=== PATIENT | male | born 1975 | race African-American/Black ===

== ENCOUNTER 2017-07-16 18:15 | Emergency (ER) | payer OTHER ==
[2017-07-16 18:26] VITALS: RESP 18
--- NOTE | 2017-07-16 20:01 | CT ---
EXAMINATION TYPE: CT mastoid wo con DATE OF EXAM: 07/16/2017 COMPARISON: NONE HISTORY: Left ear ache CT DLP: 150 mGycm. Automated Exposure Control for Dose Reduction was Utilized. TECHNIQUE: CT scan to the mastoid air cells performed at 1 mm thick sections. Reconstructed images in the coronal plane are reviewed.. FINDINGS: Mastoid air cells are clear. No septal destruction are fluid-filled mastoid air cells are e vident. Note is made a retention cyst within the sphenoid sinus. Mild mucosal thickening is within the left m axillary sinus. Remaining paranasal sinuses within the [id number] are clear. The adenoid is slightly prominent. Osseous structures visualized otherwise are unremarkable. Portion of the brain is visualized within the [id number] is unremarkable. IMPRESSION: 1. Normal mastoids. 2. Sphenoid sinus mucosal retention cyst. 3. Mild mucosal thickening left maxillary sinus.
[2017-07-16] MEDS ORDERED: OFLOXACIN 0.3% OPHTH DROPS 5 ML BOTTLE LEFT EAR STA (20:19)
[2017-07-16 20:44] VITALS: BP 134/78; PULSE 91; TEMP 97.6
[2017-07-16] MEDS ORDERED: Acetaminophen-Codeine 300-30mg TAB PO STA (20:44)
--- NOTE | 2017-07-16 21:07 | ED ---
General Adult HPI - General Chief complaint: ENT Stated complaint: lt ear pain Time Seen by Provider: 07/16/17 18:40 Source: patient, RN notes reviewed Mode of arrival: ambulatory Limitations: no limitations - History of Present Illness Initial comments: 41-year-old male presents to the emergency department for a chief complaint of left ear pain. Patient states that his been ongoing for about a week. Patient states his left ear appears closed. Patient denies pain in the neck or face. Patient denies pain behind the ear. Patient denies any history of diabetes. Patient denies any fevers. Patient denies swimming in any lakes or ponds. Patient states he does take showers. Patient denies any decreased hearing. Patient denies any other complaints at this time such as shortness of breath, chest pain, abdominal pain, nausea or vomiting. - Related Data Previous Rx's Medication Instructions Recorded Amoxicillin/Potassium Clav 1 tab PO Q12HR #20 tab 07/16/17 [Augmentin 875-125 Tablet] Ibuprofen [Motrin] 600 mg PO Q8HR PRN #20 tab 07/16/17 Ofloxacin 0.3% Otic Soln [Floxin 10 drops LEFT EAR BID 10 Days ml 07/16/17 0.3% Otic Soln] Allergies Allergy/AdvReac Type Severity Reaction Status Date / Time No Known Allergies Allergy Verified 07/16/17 18:26 Review of Systems ROS Statement: Those systems with pertinent positive or pertinent negative responses have been documented in the HPI. ROS Other: All systems not noted in ROS Statement are negative. Past Medical History Past Medical History: Hypertension History of Any Multi-Drug Resistant Organisms: None Reported Past Surgical History: No Surgical Hx Reported Past Psychological History: No Psychological Hx Reported Smoking Status: Current every day smoker Past Alcohol Use History: Occasional Past Drug Use History: Marijuana General Exam Limitations: no limitations Eye exam: Present: normal appearance, PERRL, EOMI. Absent: scleral icterus, conjunctival injection, periorbital swelling ENT exam: Present: normal exam, normal oropharynx. Absent: TM's normal bilaterally (Right TM appears within normal limits. Left tympanic membrane cannot be visualized due to swelling in the external ear canal.), normal external ear exam (Left external ear canal is swollen and edematous. It is not patent. Patient has pain when tragus is palpated. Patient denies pain when pinna is palpated. Patient denies pain in the mastoid process but states she has some mild pain under his ear. Patient denies pain in the front of his ear.) Neck exam: Present: normal inspection, full ROM. Absent: tenderness, meningismus, lymphadenopathy Respiratory exam: Present: normal lung sounds bilaterally. Absent: respiratory distress, wheezes, rales, rhonchi, stridor Cardiovascular Exam: Present: regular rate, normal rhythm, normal heart sounds. Absent: systolic murmur, diastolic murmur, rubs, gallop, clicks Course Vital Signs 07/16/17 07/16/17 18:23 20:43 Temperature 98.9 F 97.6 F Pulse Rate 111 H 91 Respiratory 18 18 Rate Blood Pressure 144/89 134/78 O2 Sat by Pulse 100 100 Oximetry Medical Decision Making - Medical Decision Making 41-year-old male presents with left ear pain. Patient states his left ear appears closed. On exam tympanic membrane cannot be visualized and external ear canal is not patent. Patient denies any fevers. Vitals are within normal limits: Temperature 98.9, pulse 111, respirations 18, blood pressure 144/89, pulse ox 100. Patient is afebrile. Patient states he has pain to palpation of the tragus and inferior to the ear. CT findings show that mastoid air cells are clear. No septal distraction or fluid-filled mastoid air cells are evident. A wick was placed in patient's left ear and 10 drops of ofloxacin was instilled. Patient was given a prescription for ofloxacin. He was also given a prescription of Augmentin since the tympanic membrane cannot be visualized. He is to follow up with primary care in 1-2 days. He is to return to the emergency department if symptoms worsen or he develops fevers. Disposition Clinical Impression: Otitis externa Disposition: HOME SELF-CARE Condition: Good Instructions: Otitis Externa (ED) Additional Instructions: Please follow up with primary care provider in one to 2 days. You may have the wick come out when the ear canal opens enough. Continue to apply antibiotic drops as directed. Take Augmentin as directed. Take ibuprofen as directed for pain relief. Return to the emergency department if you develop fevers or symptoms worsen. Prescriptions: Amoxicillin/Potassium Clav [Augmentin 875-125 Tablet] 1 tab PO Q12HR #20 tab Ibuprofen [Motrin] 600 mg PO Q8HR PRN #20 tab PRN Reason: Pain Ofloxacin 0.3% Otic Soln [Floxin 0.3% Otic Soln] 10 drops LEFT EAR BID 10 Days ml Referrals: Amelia Alicia MD [Primary Care Provider] - 1-2 days Time of Disposition: 21:06
== END 2017-07-16 21:17 | disposition home or self-care (01) ==
LOC: EC 18:15
DX: H60.92 Unspecified otitis externa, left ear (principal); F17.200 Nicotine dependence, unspecified, uncomplicated
CPT/HCPCS: 70486; 99283

== ENCOUNTER 2017-08-18 22:29 | Emergency (ER) | payer OTHER ==
[2017-08-18 22:35] VITALS: BP 152/93; PULSE 102; RESP 18; TEMP 99.1
--- NOTE | 2017-08-18 23:03 | ED ---
General Adult HPI - General Chief complaint: Extremity Injury, Upper Stated complaint: Arm injury Time Seen by Provider: 08/18/17 23:00 Source: patient Mode of arrival: ambulatory Limitations: no limitations - History of Present Illness Initial comments: Diego Martin is a 41-year-old male who presents ot the ED today for evaluation of right shoulder pain. Patient states that he was in a chi to get to his car, he put on his boots but he did not tie them. He states that while walking he tripped over his untied shoelaces and fell forward. He attempted to catch himself on the car door. He reports that he hyperextended his right shoulder and it made a popping noise. He states that immediately afterwards he felt as though he couldn't move his shoulder. He then asked his significant other to drive him to the hospital for evaluation because he thought his shoulder was dislocated. En route to the hospital he states that he was able to move his shoulder and that it made for popping noises. He states that then felt like it was in place but it is still very sore. Patient denies any numbness or tingling in extremity. He reports full range of motion now but does state it is mildly sore especially with abduction patient denies any other injuries. He denies striking his head or loss of consciousness. He was able to get himself up off the ground and has been ambulatory since that time. - Related Data Home Medications Medication Instructions Recorded Confirmed amLODIPine [Norvasc] 5 mg PO DAILY 08/18/17 08/18/17 Allergies Allergy/AdvReac Type Severity Reaction Status Date / Time No Known Allergies Allergy Verified 08/18/17 22:41 Review of Systems ROS Statement: Those systems with pertinent positive or pertinent negative responses have been documented in the HPI. ROS Other: All systems not noted in ROS Statement are negative. Past Medical History Past Medical History: Hypertension History of Any Multi-Drug Resistant Organisms: None Reported Past Surgical History: No Surgical Hx Reported Past Psychological History: No Psychological Hx Reported Smoking Status: Current every day smoker Past Alcohol Use History: Occasional Past Drug Use History: Marijuana General Exam Limitations: no limitations General appearance: alert, in no apparent distress Head exam: Present: atraumatic, normocephalic Eye exam: Present: normal appearance, PERRL ENT exam: Present: normal oropharynx Neck exam: Present: full ROM Respiratory exam: Absent: respiratory distress Cardiovascular Exam: Present: regular rate GI/Abdominal exam: Present: soft. Absent: distended Rectal exam: Present: deferred Extremities exam: Present: normal inspection, tenderness, normal capillary refill. Absent: pedal edema, joint swelling Right General: Absent: laceration, abrasion Shoulder Exam: Present: tenderness, tenderness over AC joint. Absent: swelling , abrasion, laceration, ecchymosis, deformity, crepitus, dislocation, erythema Elbow exam: Present: full ROM Forearm Wrist exam: Present: full ROM. Absent: tenderness, swelling Hand Wrist exam: Present: full ROM. Absent: tenderness, swelling Neuro motor exam: Present: wrist extension intact, thumb opposition intact, thumb IP flexion intact, thumb adduction intact, fingers 2-5 abduction intact Neurosensory exam: Present: 2-point discrimination Vascular: Present: normal capillary refill. Absent: vascular compromise, Pallo , pulse deficit radial art, pulse deficit ulnar art Back exam: Present: normal inspection Neurological exam: Present: alert, oriented X3 Psychiatric exam: Present: normal affect, normal mood Skin exam: Present: warm, dry Course Vital Signs 08/18/17 22:31 Temperature 99.1 F Pulse Rate 102 H Respiratory 18 Rate Blood Pressure 152/93 O2 Sat by Pulse 98 Oximetry Medical Decision Making - Medical Decision Making The patient was seen and evaluated, vital signs were reviewed. Patient is mildly tachycardic but also experiencing pain. History and physical exam are concerning for a fall with direct injury to the right shoulder. Patient believes that he may have dislocated and subsequently stopped his right shoulder. X-ray to evaluate for any signs of dislocation or fracture. Patient's arm is neurovascularly intact, patient has full passive range of motion. Active range of motion is limited due to discomfort although the patient is able to slowly abduct. X-rays with no acute injury Results were discussed with the patient. I advised the patient that it is possible that he had subluxed and subsequently reduced his injury. At this time I would recommend supportive care with rest and ice, I offered the patient a sling but he declined. I advised the patient that he will need to follow-up with his primary care physician or an orthopedic surgeon next week for further evaluation and possibly further imaging including MRI to evaluate for rotator cuff injury. I advised patient to return to the ED if he develops any worsening pain, swelling or numbness or tingling in the arm, pain not relieved by over-the- counter Tylenol or Motrin for any new or concerning symptoms. All questions pertaining to care were answered best my ability the patient was discharged home in stable condition with a referral to orthopedics for follow-up. Disposition Clinical Impression: Strain of shoulder Disposition: HOME SELF-CARE Condition: Good Instructions: Rotator Cuff Injury (ED), Elbow Sprain (ED) Is patient prescribed a controlled substance at d/c from ED?: No Referrals: Amelia Alicia MD [Primary Care Provider] - 1-2 days Sam Stacy DO [Doctor of Osteopathic Medicine] - 1-2 days Time of Disposition: 23:30
--- NOTE | 2017-08-18 23:20 | XR ---
EXAMINATION TYPE: XR shoulder complete RT DATE OF EXAM: 08/18/2017 COMPARISON: NONE HISTORY: Pain and injury. TECHNIQUE: 4 views FINDINGS: I see no fracture nor dislocation. Joint spaces are fairly normal. There is no sign of a fr acture. There are no pathologic calcifications. IMPRESSION: Negative right shoulder exam.
== END 2017-08-18 23:39 | disposition home or self-care (01) ==
LOC: EC 22:29
DX: S46.911A Strain of unspecified muscle, fascia and tendon at shoulder and upper arm level, right arm, initial encounter (principal); I10 Essential (primary) hypertension; F17.200 Nicotine dependence, unspecified, uncomplicated; Z79.899 Other long term (current) drug therapy; W18.09XA Striking against other object with subsequent fall, initial encounter
CPT/HCPCS: 99283

== ENCOUNTER 2019-07-31 13:18 | Emergency (ER) | payer OTHER ==
[2019-07-31] MEDS ORDERED: ALPRAZolam 0.25 MG TAB PO STA (14:13)
--- NOTE | 2019-07-31 14:28 | ED ---
General Adult HPI - General Chief complaint: Recheck/Abnormal Lab/Rx Stated complaint: ABN BLOOD WOR Time Seen by Provider: 07/31/19 13:40 Source: patient, family Mode of arrival: ambulatory Limitations: no limitations - History of Present Illness Initial comments: 43-year-old male with history of hypertension on amlodipine 5 mg as well as significant smoking history presenting today for chief complaint of abnormal labs. Patient states she was sent by his primary care provider in for evaluation as he states he had an EKG performed as well as laboratory studies history he states there was an elevated crit and kinase as well as T-wave inversions on his EKG she will ensure that the IV clinic kinase without secondary to a cardiac event. She denies any chest pain or pressure. He states he initially presented to his primary care provider's office for left arm parathesias x 3 months. She states the past 3 months he has had the sensation as left arm is falling asleep he states it was more intermittent and seem somewhat positional at first however he states is more constant now. Patient denies any associated symptoms. Patient denies any headache dizziness nausea vomiting epigastric pain visual or speech changes weakness of the upper or lower extremities diplopia, falls or trauma to the neck or arm. Denies neck pain. Patient refused to come to the emergency department yesterday as instructed by his primary care provider however about his to bring him this afternoon. Upon arrival patient has no additional complaints aside from the left arm paresthesias and going on for 3 months - Related Data Home Medications Medication Instructions Recorded Confirmed amLODIPine [Norvasc] 5 mg PO DAILY 08/18/17 08/18/17 Allergies Allergy/AdvReac Type Severity Reaction Status Date / Time No Known Allergies Allergy Verified 08/18/17 22:41 Review of Systems ROS Statement: Those systems with pertinent positive or pertinent negative responses have been documented in the HPI. ROS Other: All systems not noted in ROS Statement are negative. Past Medical History Past Medical History: Hypertension History of Any Multi-Drug Resistant Organisms: None Reported Past Surgical History: No Surgical Hx Reported Past Psychological History: No Psychological Hx Reported Smoking Status: Current every day smoker Past Alcohol Use History: Occasional Past Drug Use History: Marijuana General Exam - General Exam Comments Initial Comments: General: The patient is awake and alert, in no distress, and does not appear acutely ill. Eye: +3 mm pupils are equal, round and reactive to light, extra-ocular movements are intact. No nystagmus. There is normal conjunctiva bilaterally. No signs of icterus. Ears, nose, mouth and throat: There are moist mucous membranes and no oral lesions. Neck: The neck is supple, there is no tenderness or JVD. Cardiovascular: There is a regular rate and rhythm. No murmur, rub or gallop is appreciated. Respiratory: Lungs are clear to auscultation, respirations are non-labored, breath sounds are equal. No wheezes, stridor, rales, or rhonchi. Gastrointestinal: Soft, non-distended, non-tender abdomen without masses or organomegaly noted. There is no rebound or guarding present. Musculoskeletal: Normal inspection of the shoulder cervical thoracic spine. Patient has full range motion of the left shoulder without any tenderness. There is noted crepitus.. Strength 5/5 of the UE and LE b/l. Sensation intact of the UE and LE b/l. radial pulses equal bilaterally 2+. Neurological: A&O x 3. CN II-XII intact, There are no obvious motor or sensory deficits. Coordination appears grossly intact. Speech is normal. Skin: Skin is warm and dry and no rashes or lesions are noted. Psychiatric: Cooperative, appropriate mood & affect, normal judgment. Limitations: no limitations Course Vital Signs 07/31/19 07/31/19 07/31/19 13:29 14:55 16:45 Temperature 98.1 F 98.0 F Pulse Rate 89 98 80 Respiratory 18 18 16 Rate Blood Pressure 133/91 139/95 146/100 O2 Sat by Pulse 99 100 98 Oximetry Medical Decision Making - Medical Decision Making 43-year-old male presenting today for chief complaint of abnormal EKG elevated creatinine kinase. Current kinase elevated however consistent with outpatient values of 477. Patient has no history concerning for rhabdomyolysis. Patient has no exertional activity and states he has been sitting around a lot more than usual. Creatine kinase appears to be slightly decreasing with previous thallium 500. Patient's troponin negative EKG no acute findings however there are no T-wave inversions or recommend outpatient stress testing. Patient is no current symptoms. The left arm paresthesia has been ongoing for the months.Patient CXR clear. He will be discharged with PCP f/u per recommendation of attending provider, I am agreeable and feel this care plan is appropriate at this time as is patient. - Lab Data Result diagrams: 07/31/19 14:30 07/31/19 14:30 Lab Results 07/31/19 07/31/19 07/31/19 Range/Units 14:30 14:30 14:30 WBC 7.9 (3.8-10.6) k/uL RBC 5.15 (4.30-5.90) m/uL Hgb 14.8 (13.0-17.5) gm/dL Hct 47.1 (39.0-53.0) % MCV 91.5 (80.0-100.0) fL MCH 28.7 (25.0-35.0) pg MCHC 31.4 (31.0-37.0) g/dL RDW 13.5 (11.5-15.5) % Plt Count 368 (150-450) k/uL Neutrophils % 55 % Lymphocytes % 34 % Monocytes % 7 % Eosinophils % 1 % Basophils % 1 % Neutrophils # 4.3 (1.3-7.7) k/uL Lymphocytes # 2.6 (1.0-4.8) k/uL Monocytes # 0.6 (0-1.0) k/uL Eosinophils # 0.1 (0-0.7) k/uL Basophils # 0.1 (0-0.2) k/uL Sodium 139 (137-145) mmol/L Potassium 4.5 (3.5-5.1) mmol/L Chloride 105 (98-107) mmol/L Carbon Dioxide 26 (22-30) mmol/L Anion Gap 8 mmol/L BUN 8 L (9-20) mg/dL Creatinine 0.83 (0.66-1.25) mg/dL Est GFR (CKD-EPI)AfAm >90 (>60 ml/min/1.73 sqM) Est GFR (CKD-EPI)NonAf >90 (>60 ml/min/1.73 sqM) Glucose 101 H (74-99) mg/dL Calcium 9.9 (8.4-10.2) mg/dL Total Bilirubin 0.4 (0.2-1.3) mg/dL AST 37 (17-59) U/L ALT 32 (4-49) U/L Alkaline Phosphatase 96 (38-126) U/L Creatine Kinase 477 H (55-170) U/L Troponin I <0.012 (0.000-0.034) ng/mL Total Protein 8.8 H (6.3-8.2) g/dL Albumin 4.8 (3.5-5.0) g/dL Urine Color Urine Appearance (Clear) Urine pH (5.0-8.0) Ur Specific [place] (1.001-1.035) Urine Protein (Negative) Urine Glucose (UA) (Negative) Urine Ketones (Negative) Urine Blood (Negative) Urine Nitrite (Negative) Urine Bilirubin (Negative) Urine Urobilinogen (<2.0) mg/dL Ur Leukocyte Esterase (Negative) 07/31/19 Range/Units 14:30 WBC (3.8-10.6) k/uL RBC (4.30-5.90) m/uL Hgb (13.0-17.5) gm/dL Hct (39.0-53.0) % MCV (80.0-100.0) fL MCH (25.0-35.0) pg MCHC (31.0-37.0) g/dL RDW (11.5-15.5) % Plt Count (150-450) k/uL Neutrophils % % Lymphocytes % % Monocytes % % Eosinophils % % Basophils % % Neutrophils # (1.3-7.7) k/uL Lymphocytes # (1.0-4.8) k/uL Monocytes # (0-1.0) k/uL Eosinophils # (0-0.7) k/uL Basophils # (0-0.2) k/uL Sodium (137-145) mmol/L Potassium (3.5-5.1) mmol/L Chloride (98-107) mmol/L Carbon Dioxide (22-30) mmol/L Anion Gap mmol/L BUN (9-20) mg/dL Creatinine (0.66-1.25) mg/dL Est GFR (CKD-EPI)AfAm (>60 ml/min/1.73 sqM) Est GFR (CKD-EPI)NonAf (>60 ml/min/1.73 sqM) Glucose (74-99) mg/dL Calcium (8.4-10.2) mg/dL Total Bilirubin (0.2-1.3) mg/dL AST (17-59) U/L ALT (4-49) U/L Alkaline Phosphatase (38-126) U/L Creatine Kinase (55-170) U/L Troponin I (0.000-0.034) ng/mL Total Protein (6.3-8.2) g/dL Albumin (3.5-5.0) g/dL Urine Color Light Yellow Urine Appearance Clear (Clear) Urine pH 6.5 (5.0-8.0) Ur Specific [place] 1.010 (1.001-1.035) Urine Protein Negative (Negative) Urine Glucose (UA) Negative (Negative) Urine Ketones Negative (Negative) Urine Blood Negative (Negative) Urine Nitrite Negative (Negative) Urine Bilirubin Negative (Negative) Urine Urobilinogen <2.0 (<2.0) mg/dL Ur Leukocyte Esterase Negative (Negative) Disposition Clinical Impression: Elevated creatine kinase, T wave inversion in EKG, Paresthesia of left arm Disposition: HOME SELF-CARE Condition: Good Instructions (If sedation given, give patient instructions): Paresthesia (ED) Additional Instructions: Please use medication as discussed. Please follow-up with family doctor in the next 2 days. repeat creatinine Kinase with pcp in 2 days. Please return to emergency room if the symptoms increase or worsen or for any other concerns. Is patient prescribed a controlled substance at d/c from ED?: No Referrals: Amelia Alicia MD [Primary Care Provider] - 1-2 days Time of Disposition: 16:34
[2019-07-31 14:46] LABS: Appearance,Urine Clear (Clear); Basophils # (A) 0.1 k/uL (0-0.2); Basophils % (A) 1 %; Bilirubin,Urine Negative (Negative); Blood,Urine Negative (Negative); Color,Urine Light Yellow; Eosinophils # (A) 0.1 k/uL (0-0.7); Eosinophils % (A) 1 %; Glucose,Urine (UA) Negative (Negative); HCT 47.1 % (39.0-53.0); HGB 14.8 gm/dL (13.0-17.5); Ketones,Urine Negative (Negative); Leukocyte Esterase,Urine Negative (Negative); Lymphocytes # (A) 2.6 k/uL (1.0-4.8); Lymphocytes % (A) 34 %; MCH 28.7 pg (25.0-35.0); MCHC 31.4 g/dL (31.0-37.0); MCV 91.5 fL (80.0-100.0); Monocytes # (A) 0.6 k/uL (0-1.0); Monocytes % (A) 7 %; Neutrophils # (A) 4.3 k/uL (1.3-7.7); Neutrophils % (A) 55 %; Nitrite,Urine Negative (Negative); PH, Urine 6.5 (5.0-8.0); Platelet Count 368 k/uL (150-450); Protein,Urine Negative (Negative); RBC 5.15 m/uL (4.30-5.90); RDW 13.5 % (11.5-15.5); Urobilinogen,Urine <2.0 mg/dL (<2.0); WBC 7.9 k/uL (3.8-10.6)
[2019-07-31 14:55] LABS: ALT 32 U/L (4-49); AST 37 U/L (17-59); African American GFR (CKD) >90 (>60 ml/min/1.73 sqM); Albumin 4.8 g/dL (3.5-5.0); Alkaline Phosphatase 96 U/L (38-126); Anion Gap 8 mmol/L; Blood Urea Nitrogen 8 mg/dL (9-20); Calcium 9.9 mg/dL (8.4-10.2); Carbon Dioxide 26 mmol/L (22-30); Chloride 105 mmol/L (98-107); Creatine Kinase 477 U/L (55-170); Glucose 101 mg/dL (74-99); Non-African American GFR(CKD) >90 (>60 ml/min/1.73 sqM); Potassium 4.5 mmol/L (3.5-5.1); Sodium 139 mmol/L (137-145); Total Bilirubin 0.4 mg/dL (0.2-1.3); Total Protein 8.8 g/dL (6.3-8.2)
--- NOTE | 2019-07-31 15:07 | XR ---
EXAMINATION TYPE: XR chest 2V DATE OF EXAM: 07/31/2019 COMPARISON: NONE HISTORY: Abnormal EKG. Chest pain into left arm for 3 months. TECHNIQUE: Frontal and lateral views of the chest are obtained. FINDINGS: Overlying EKG leads. There is no focal air space opacity, pleural effusion, or pneumothorax seen. The cardiac silhouette size is within normal limits. The osseous structures are intact. IMPRESSION: No acute process identified.
[2019-07-31] MEDS ORDERED: SODIUM CHLORIDE 0.9% 500 ML 500 ML IV ONE (15:22)
--- NOTE | 2019-07-31 15:35 | CT ---
EXAMINATION TYPE: CT brain wo con DATE OF EXAM: 07/31/2019 COMPARISON: CT mastoids July 16, 2017. HISTORY: Left shoulder numbness x [address] DLP: 1096.4 mGycm. Automated Exposure Control for Dose Reduction was Utilized. TECHNIQUE: CT scan of the head is performed without contrast. FINDINGS: There is no acute intracranial hemorrhage or midline shift identified. Mild bilateral fro ntal lobe atrophy. Pelletier-white matter differentiation maintained. Mild mucosal thickening left maxilla ry sinus. Globes are intact bilaterally. IMPRESSION: No acute intracranial hemorrhage or midline shift is seen.
[2019-07-31 16:47] VITALS: BP 146/100; PULSE 80; RESP 16; TEMP 98
== END 2019-07-31 16:47 | disposition home or self-care (01) ==
LOC: EC 13:18
DX: R74.8 Abnormal levels of other serum enzymes (principal); R94.31 Abnormal electrocardiogram [ECG] [EKG]; R20.2 Paresthesia of skin; I10 Essential (primary) hypertension; F17.200 Nicotine dependence, unspecified, uncomplicated
CPT/HCPCS: 36415; 70450; 71046; 80053; 81003; 82550; 84484; 85025; 93005; 99284